=== PATIENT | female | born 1985 | race Caucasian/White ===

== ENCOUNTER 2020-02-14 02:32 | Emergency (ER) | payer BC ==
[2020-02-14 05:04] LABS: APPEARANCE,URINE CLOUDY; BILIRUBIN,URINE NEGATIVE (NEGATIVE); CALCIUM OXALATE CRYSTALS,URINE MANY /HPF; COLOR,URINE YELLOW; GLUCOSE, URINE NEGATIVE (NEGATIVE); KETONES,URINE NEGATIVE (NEGATIVE); LEUKOCYTE ESTERASE,URINE NEGATIVE (NEGATIVE); NITRITE,URINE NEGATIVE (NEGATIVE); PROTEIN,URINE NEGATIVE (NEGATIVE); URINE SPECIFIC GRAVITY 1.028
[2020-02-14] MEDS ORDERED: METHOCARBAMOL 750 MG TABLET PO ONE (06:33)
[2020-02-14] MEDS ORDERED: OXYCODONE HCL IR 5 MG TABLET PO ONE (06:33)
[2020-02-14] MEDS ORDERED: PREDNISONE 20 MG TABLET PO ONE (06:33)
--- NOTE | 2020-02-14 06:37 | ER Document Report ---
ED General - General Chief Complaint: Back Pain Stated Complaint: LOWER BACK PAIN Time Seen by Provider: 02/14/20 06:19 Primary Care Provider: [facility] [Provider Group] - Follow up as needed Notes: Patient is a 34-year-old female presents to the emergency department for chief complaint of low back pain. Patient states it started a few days ago, she does not recall any injury. She states that she describes the pain as an aching in her low back, will radiate to the hips bilaterally, worse on the left compared to the right. Seems to be worse with walking, lifting and bending. Denies any urinary symptoms such as dysuria, hematuria, she also denies having any loss of bowel or bladder function, saddle anesthesias or paresthesias, numbness, tingling or weakness. No other complaints at this time. - Related Data Allergies/Adverse Reactions: No Known Allergies Allergy (Verified 02/14/20 03:29) Home Medications: bp med, buspar Past Medical History - Social History Smoking Status: Current Every Day Smoker Family History: Reviewed & Not Pertinent Review of Systems - Review of Systems Notes: REVIEW OF SYSTEMS: CONSTITUTIONAL : No fever No chills No diaphoresis No recent illness EENT: No vision changes No congestion No sore throat CARDIOVASCULAR: No chest pain No palpitations No shortness of breath RESPIRATORY: No shortness of breath No cough No difficulty breathing GASTROINTESTINAL: No abdominal pain No nausea No vomiting No diarrhea GENITOURINARY: No dysuria No hematuria No difficulty urinating MUSCULOSKELETAL: Positive for back pain No leg pain No arm pain SKIN: No rashes No lesions LYMPHATIC: No swollen, enlarged glands. NEUROLOGICAL: No lightheadedness No headache No weakness No paresthesias PSYCHIATRIC: No anxiety No depression Physical Exam - Vital signs Vitals: Temp Pulse Resp BP Pulse Ox 97.9 F 84 16 145/95 H 99 02/14/20 02:38 02/14/20 02:38 02/14/20 02:38 02/14/20 02:38 02/14/20 02:38 - Notes Notes: PHYSICAL EXAMINATION: Vital signs reviewed, nursing notes reviewed. GENERAL: Well-appearing, well-nourished and in no acute distress. HEAD: Atraumatic, normocephalic. EYES: Eyes appear normal, extraocular movements intact, sclera anicteric, conjunctiva are normal. ENT: nares patent, oropharynx clear without exudates. Moist mucous membranes. NECK: Normal range of motion, supple without lymphadenopathy LUNGS: Breath sounds clear to auscultation bilaterally and equal. No wheezes rales or rhonchi. HEART: Regular rate and rhythm without murmurs ABDOMEN: Soft, nontender, normoactive bowel sounds. No rebound, guarding, or rigidity. No masses appreciated. EXTREMITIES: Nontender, good range of motion, no pitting or edema. Back: Patient has mild tenderness palpation to the paraspinal musculature of the lumbar spine, and increased pain with straight leg raising on the left, but no radicular symptoms. NEUROLOGICAL: No focal neurological deficits. Moves all extremities spontaneously Motor and sensory grossly intact on exam. Muscular motor strength is +5/5 distally specifically with the extension of the hallucis longus tendon, dorsi flexion and plantar flexion. Sensation equal bilaterally distally. PSYCH: Normal mood, normal affect. SKIN: Warm, Dry, normal turgor, no rashes or lesions noted on exposed skin electrolytes Course - Re-evaluation Re-evalutation: Patient seen and examined, vital signs reviewed, exam patient overall appears well, she did have some tenderness to palpation of the lumbar spine, and positive straight leg raising for pain on the left, otherwise unremarkable exam, urinalysis was unremarkable, no signs of urinary tract infection. The patient be discharged home, given prednisone, Flexeril, and short course of oxycodone if needed for pain, advised to return to the emergency department if she developed any worsening symptoms. Patient understood and agreed and was discharged home. - Vital Signs Vital signs: Temp Pulse Resp BP Pulse Ox 97.7 F 81 16 107/85 100 02/14/20 05:41 02/14/20 05:41 02/14/20 05:41 02/14/20 05:41 02/14/20 05:41 - Laboratory Results Laboratory Results Interpreted: 02/14/20 03:30 Urine Urobilinogen 2.0 H Urine Ascorbic Acid 20 H Critical Laboratory Results Reviewed: No Critical Results - Radiology Results Critical Radiology Results Reviewed: No Critical Results Discharge - Discharge Clinical Impression: Back pain Qualifiers: Back pain location: low back pain Chronicity: acute Back pain laterality: bi lateral Sciatica presence: with sciatica Sciatica laterality: bilateral sciatica Qualified Code(s): M54.42 - Lumbago with sciatica, left side Condition: Stable Disposition: HOME, SELF-CARE Instructions: Low Back Pain ([facility]) Prescriptions: Oxycodone HCl [Oxy-Ir 5 mg Tablet] 5 mg PO Q6HP PRN #10 tab PRN Reason: low back pain Prednisone 40 mg PO DAILY 4 Days #16 tablet Methocarbamol [Robaxin 750 mg Tablet] 750 mg PO TIDP PRN #40 tablet PRN Reason: low back pain Forms: Return to Work Referrals: [facility] [Provider Group] - Follow up as needed
[2020-02-14 06:57] VITALS: BP 116/75
== END 2020-02-14 06:57 | disposition home or self-care (01) ==
LOC: ER 02:32
DX: M54.42 Lumbago with sciatica, left side (principal); M54.9 Dorsalgia, unspecified; M25.551 Pain in right hip; M25.552 Pain in left hip; Z79.899 Other long term (current) drug therapy; F17.200 Nicotine dependence, unspecified, uncomplicated
CPT/HCPCS: 99284; 81025; 81001; J3490; J7512